=== PATIENT | male | born 1990 | race Caucasian/White ===

== ENCOUNTER 2019-06-05 22:53 | Emergency (ER) | payer OTHER, MEDICAID, SELFPAY ==
--- NOTE | 2019-06-05 22:58 | ED.GENADULT ---
HPI - General Adult General Chief complaint: Toxicology Problem Stated complaint: Possible overdose Time Seen by Provider: 06/05/19 22:53 Source: patient and police Mode of arrival: EMS Limitations: other (Under the influence of heroin) History of Present Illness HPI narrative: Patient is a 28-year-old male. He is brought in by EMS after they were called by police for concerns of the patient overdosing on heroin. Unsure the exact situation of how the police found the individual but does reported that he was sitting in a car when the police found the individual. It was reported by EMS that the police stated that the individual had used heroin. He was given Narcan by police without any improvement of symptoms. Unsure as the a dose. Unsure if patient had any respiratory depression prior to giving Narcan. Patient was handcuffed upon arrival. Related Data Allergies Allergy/AdvReac Type Severity Reaction Status Date / Time No Known Drug Allergies Allergy Verified 06/05/19 23:02 Review of Systems Review of Systems ROS Unobtainable: Unobtainable due to mental status/LOC [facility] Medical History Medical history unknown (Acute) Social History Smoking Status: Unknown if ever smoked Social History Smoking Status: Unknown if ever smoked Exam Initial Vital Signs Initial Vital Signs: Vital Signs Temperature 97.2 F L 06/05/19 23:02 Pulse Rate 70 06/05/19 23:02 Respiratory Rate 18 06/05/19 23:02 Blood Pressure 123/56 L 06/05/19 23:02 Pulse Oximetry 97 06/05/19 23:02 Const General: No comfortable Orientation: awake Limitations: altered mental status HENMT Head: normal to inspection and normocephalic Eyes Pupils: PERRL Resp Effort & Inspection: normal respiratory effort Auscultation: clear to auscultation bilaterally Cardio Rate: regular rate Rhythm: regular rhythm Skin Lesions: no lesions Rashes: no rashes Neuro General: awake Other: Patient moved all 4 extremities spontaneously. He was moving around the bed. He did answer with 1 word sentences that appeared to be correct answers to questioning although he did not answer all questions. Extrem General: capillary refill normal Psych Appearance: disheveled Speech and Movement: restless Mood: anxious mood, manic mood, paranoid and No angry Affect: elated Course Orders Ordered: Discontinued Medications Haloperidol (Haldol) 5 mg IM NOW ONE Stop: 06/05/19 23:08 Last Admin: 06/05/19 23:17 Dose: 5 mg Documented by: FUNMILAYO Lorazepam (Ativan) 2 mg IM NOW ONE Stop: 06/05/19 22:54 Last Admin: 06/05/19 23:06 Dose: 2 mg Documented by: FUNMILAYO Vital Signs Vital signs: Vital Signs - 8 hr 06/05/19 23:30 06/06/19 00:57 06/06/19 02:41 Pulse Rate 98 H 94 H 82 Respiratory Rate 33 H 15 Blood Pressure [Left Arm] 167/143 H 104/53 L 112/71 Pulse Oximetry 98 96 98 06/06/19 06:30 Pulse Rate 66 Respiratory Rate 17 Blood Pressure [Left Arm] 101/55 L Pulse Oximetry 98 Medical Decision Making MDM Narrative Medical decision making narrative: Patient received IM Ativan upon arrival and then IM Haldol. This did seem to calm him somewhat. Patient was not aggressive or belligerent. He was moving around the bed the moving all 4 extremities. He did seem to be uncomfortable. He answered some questions with 1 word answers. When I asked him if he would like any medication to help calm him down he said ?please ?unsure the exact situation what happened to him. It was reported by nursing that he did state that he took heroin. Unsure if he had any other illicit drug ingestions. He has no signs of trauma. I do have a strong suspicion with the patient's actions in the information given that he is high on heroin. I did not feel the need to obtain a head CT. Did not feel any new to obtain blood work. The handcuffs were removed by police after his arrival. Patient has remained calm and sleeping all evening. Will continue to observe until he is clinically sober. Patient was easily arousable in the morning. He stated that he is no longer high. He states he did do heroin last evening. Denies any other toxic ingestions. He was alert and oriented. Was sitting up in bed. Ate food without issue. Patient is clinically sober. He is alert oriented x3. GCS of 15. My pain and has the capacity to make decisions. Discharge Plan Departure Patient Disposition: Home Clinical Impression: Heroin abuse Instructions: DI for Drug Abuse and Drug Addiction Activity Restrictions/Additional Instructions: You are not to drive for the next 24 hours or in the future if you partake in intoxicating substances. I do recommend that you up stain from using heroin in the future. Return to the emergency department for any new or worsening symptoms
[2019-06-05 23:02] VITALS: BP 123/56; PULSE 70; RESP 18; TEMP 36.2; O2SAT 97
[2019-06-05] MEDS: LORazepam 2 MG/ML INJ IM (23:06)
[2019-06-05] MEDS: HALOPERIDOL 5 MG/ML VIAL IM (23:17)
--- NOTE | 2019-06-05 23:25 | PC.NURSE ---
Pt extremely restless,rolling around on bed,unable to sit still.
[2019-06-05 23:30] VITALS: BP 167/143; PULSE 98; RESP 33; O2SAT 98
--- NOTE | 2019-06-05 23:30 | PC.NURSE ---
Patient was still in cuffs when he arrived in the ER. We were able to get a ecological technical officer out to uncuff him about 15minutes after his arrival in the ER. Patient cannot control his muscle movement and keeps asking us to make it stop.
--- NOTE | 2019-06-05 23:32 | PC.NURSE ---
Patient was squirming in bed and and I were working on getting his vital signs when she noticed a needle sliding out of his pocket. I was able to safely grab it out of his pants and dispose of it. We then took his pants off incase he had anything else dangerous in them. Patient stated he thought the police took everything out of the pockets and that should be everything.
--- NOTE | 2019-06-05 23:38 | PC.NURSE ---
Patient is finally starting to be able to sit still.
--- NOTE | 2019-06-05 23:48 | PC.NURSE ---
Patient could not sit still for blood pressure reading to be accurate.
[2019-06-06 00:57] VITALS: BP 104/53; PULSE 94; O2SAT 96
[2019-06-06 02:41] VITALS: BP 112/71; PULSE 82; RESP 15; O2SAT 98
[2019-06-06 06:30] VITALS: BP 101/55; PULSE 66; RESP 17; O2SAT 98
[2019-06-06 07:13] VITALS: BP 117/89; PULSE 71; RESP 12; O2SAT 95
== END 2019-06-06 07:55 | disposition home or self-care (01) ==
PROVIDERS: Emergency Provider Emergency Medicine
DX: F11.10 Opioid abuse, uncomplicated (principal)
CPT/HCPCS: 96372; 99283; J1630; J2060

== ENCOUNTER 2019-11-25 14:10 | Emergency (ER) | payer OTHER, MEDICAID, SELFPAY ==
[2019-11-25 14:15] VITALS: BP 152/81; PULSE 127; RESP 19; TEMP 36.4; O2SAT 98
--- NOTE | 2019-11-25 14:40 | DI.RAD.S_ITS ---
PROCEDURE: XR CHEST 1V INDICATIONS: suspected sepsis TECHNIQUE: One view of the chest was acquired. COMPARISON: None. FINDINGS: Surgical changes and devices: None. Lungs and pleura: Lungs are clear. No pleural effusions or pneumothorax. Mediastinum: Mediastinal contours appear normal. Heart size is normal. Bones and chest wall: No suspicious bony lesions. Overlying soft tissues appear unremarkable. IMPRESSION: No focal infiltrates are seen. Dictated by: Brendon Johns M.D. on 11/25/2019 at 14:17 Approved by: Brendon Johns M.D. on 11/25/2019 at 14:18
[2019-11-25 14:55] LABS: Add Manual Diff / Slide Review NO; Basophils Absolute Auto 100 /uL (0-100); Eosinophils Absolute Auto 0 /uL (0-450); Eosinophils Percent Auto 0.2 % (2-4); Hematocrit 39.2 % (41-53); Hemoglobin 13.2 g/dL (13.5-17.5); Lymphocytes Absolute Auto 2700 /uL (1100-4500); Lymphocytes Percent Auto 45.2 % (25-40); Mean Corpuscular HGB Conc 33.6 % (30-36); Mean Corpuscular Hemoglobin 33.5 PG (26-34); Mean Corpuscular Volume 99.8 fL (80-100); Monocytes Absolute Auto 200 /uL (0-900); Monocytes Percent Auto 3.9 % (3-14); Neutrophils Absolute Auto 3000 /uL (1500-7000); Neutrophils Percent Auto 49.7 % (50-75); Platelet Count 451 X10^3/uL (150-400); Red Blood Cell Count 3.93 X10^6/uL (4.5-5.9); Red Cell Distribution Width 15.9 % (11.6-14.8); White Blood Cell Count 6.1 X10^3/uL (4.5-11.0)
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
[2019-11-25 15:08] LABS: INR 0.9 (0.9-1.3); Prothrombin Time 9.9 SECONDS (10.1-12.7)
[2019-11-25 15:11] LABS: Lactate (Lactic Acid) 2.1 mmol/L (0.7-2.1); PTT Partial Thromboplastin Tim 30 SECONDS (26.4-36.2)
[2019-11-25 15:14] LABS: Alanine Aminotransferase 55 IU/L (<50); Albumin 4.4 g/dL (3.5-5.0); Albumin Globulin Ratio 1.2 (1.0-2.8); Alkaline Phosphatase 100 U/L (38-126); Aspartate Aminotransferase 68 IU/L (17-59); BUN Creatinine Ratio 19.7 (6-22); Bilirubin Total 0.3 mg/dL (0.2-1.3); Blood Urea Nitrogen 14 mg/dL (9-20); Calcium 9.5 mg/dL (8.4-10.2); Carbon Dioxide 25 mmol/L (22-32); Chloride 105 mmol/L (98-107); Estimated Glomerular Filt Rate > 60.0 mL/min (>60); Globulin 3.7 g/dL (1.7-4.1); Glucose 120 mg/dL (70-100); HEMOLYSIS < 15 (0-50); Lipase 165 U/L (23-300); Potassium 4.5 mmol/L (3.4-5.1); Sodium 141 mmol/L (137-145); Total Protein 8.1 g/dL (6.3-8.2)
[2019-11-25 15:19] LABS: C-Reactive Protein Quant < 0.5 mg/dL (<1.0)
[2019-11-25 15:22] LABS: NT-proBNP (BNP-Adult 18+) 26 pg/mL (<125)
[2019-11-25 15:29] LABS: Procalcitonin < 0.05 ng/mL (<0.5)
[2019-11-25 15:33] LABS: Influenza A - CEPHEID Flu A NEGATIVE (NEGATIVE); Influenza B - CEPHEID Flu B NEGATIVE (NEGATIVE)
[2019-11-25 15:51] LABS: Ferritin 36 ng/mL (18-464)
[2019-11-25 16:32] VITALS: BP 118/71; PULSE 134; RESP 23
[2019-11-25 17:00] VITALS: BP 141/72; PULSE 125; RESP 18
[2019-11-25] MEDS: SODIUM CHLORIDE 0.9% 1,000 ML 1000 ML IV (17:18)
[2019-11-25] MEDS: NALOXONE 1 MG/ML SYRINGE 2 MG IV (17:19)
[2019-11-25] MEDS: AZITHROMYCIN 250 MG TABLET 500 MG PO (17:19)
[2019-11-25 17:22] VITALS: BP 148/82; PULSE 119; RESP 20; O2SAT 99
[2019-11-25 17:23] LABS: Ur Creatinine Normal (Normal); Ur Specific Gravity Normal (Normal); Urine pH Normal (Normal)
[2019-11-25 17:28] LABS: UR Morphine/Opiate cutoff 300 Positive (Negative); Urine Amphetamines Negative (Negative); Urine Barbiturates Negative (Negative); Urine Benzodiazepines Negative (Negative); Urine Cocaine Negative (Negative); Urine MDMA Negative (Negative); Urine Methadone Negative (Negative); Urine Methamphetamines Positive (Negative); Urine Oxycodone Negative (Negative); Urine Phencyclidine Negative (Negative); Urine Tetrahydrocannabinol Negative (Negative); Urine Tricyclic Antidepressant Negative (Negative)
[2019-11-25 18:26] VITALS: BP 142/70; PULSE 108; RESP 16; O2SAT 99
[2019-11-27 04:12] LABS: COVID19 Sendout Not Detected (Not Detected)
== END 2019-11-25 18:32 | disposition home or self-care (01) ==
PROVIDERS: Emergency Provider Emergency Medicine
DX: T40.1X4A Poisoning by heroin, undetermined, initial encounter (principal); J02.9 Acute pharyngitis, unspecified; R05 Cough; R00.0 Tachycardia, unspecified
CPT/HCPCS: 36415; 71045; 80053; 80305; 81003; 82728; 83605; 83690; 83880; 84145; 85025; 85610; 85730; 86140; 87040; 87502; 87635; 93005; 96361; 96374; 99284; J2310